=== PATIENT | female | born 2000 | race Caucasian/White ===

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

== ENCOUNTER 2022-07-24 12:04 | Emergency (ER) | payer BC ==
[~2022-07-24] VITALS: Ht 170.2 cm; Wt 90.0 kg
[2022-07-24 12:38] VITALS: BP 116/80
[2022-07-24] MEDS ORDERED: ondansetron 4mg rapidly disintigrating tab PO ONE (14:25)
[2022-07-24] MEDS ORDERED: fentaNYL 50MCG/ML 2ML intranasal KIT (WASTE REMAINDER W/WITNESS) NAS STA ×2 (14:25→14:48)
--- NOTE | 2022-07-24 14:50 | NUR ---
Spoke with Dr. Allen regarding Intranasal fentanyl, Dr. Allen stated to adjust dose to 100 mcg of IH fentanyl once now. Called pharmacy and requested that order be edited per Dr. Granados request.
[2022-07-24 15:23] LABS: BASOPHILS # (AUTO) 0.1 X10'3 (0-0.2); BASOPHILS % (AUTO) 0.4 % (0-1); EOSINOPHILS # (AUTO) 0.2 X10'3 (0-0.9); EOSINOPHILS % (AUTO) 1.9 % (0-6); HEMATOCRIT 44.6 % (35.0-45.0); HEMOGLOBIN 14.8 g/dl (12.0-16.0); LYMPHOCYTES # (AUTO) 4.1 X10'3 (1.1-4.8); LYMPHOCYTES % (AUTO) 31.5 % (21-51); MEAN CORPUSCULAR HEMOGLOBIN 28.4 PG (27.0-31.0); MEAN CORPUSCULAR HGB CONC 33.2 g/dL (33.0-36.5); MEAN CORPUSCULAR VOLUME 85.7 FL (78-98); MEAN PLATELET VOLUME 9.1 FL (7.4-10.4); MONOCYTES # (AUTO) 0.8 X10'3 (0-0.9); MONOCYTES % (AUTO) 5.8 % (2-12); NEUTROPHILS # (AUTO) 7.9 X10'3 (1.8-7.7); NEUTROPHILS % (AUTO) 60.4 % (42-75); PLATELET COUNT 261 X10'3 (140-440); RED BLOOD COUNT 5.21 X10'6 (4.20-5.60); RED CELL DISTRIBUTION WIDTH 13.2 % (11.5-14.5)
[2022-07-24 15:45] LABS: ALANINE AMINOTRANSFERASE 27 U/L (12-78); ALKALINE PHOSPHATASE 96 IU/L (20-180); ANION GAP 7 (8-16); ASPARTATE AMINO TRANSFERASE 19 U/L (10-37); BILIRUBIN,TOTAL 0.3 MG/DL (0.1-1.0); BLOOD UREA NITROGEN 13 MG/DL (7-18); BUN/CREATININE RATIO 17.3 (6.6-38.0); CALCIUM 9.8 MG/DL (8.5-10.1); CHLORIDE 104 MMOL/L (99-107); CREATININE 0.75 MG/DL (0.40-0.90); GLUCOSE 86 MG/DL (70-104); POTASSIUM 3.7 MMOL/L (3.5-5.1); SODIUM 140 MMOL/L (135-145); TOTAL CARBON DIOXIDE 28.7 MMOL/L (24-32); eGFR > 90 ML/MIN
[2022-07-24 15:50] LABS: MAGNESIUM 2.1 MG/DL (1.5-2.4)
[2022-07-24 15:57] LABS: MONOTEST NEGATIVE (Neg)
[2022-07-24 16:12] LABS: CLARITY,URINE SLIGHTLY CLOUDY (Clear); GLUCOSE, URINE NEGATIVE (Neg); KETONES,URINE NEGATIVE (Neg); LEUKOCYTE ESTERASE ,URINE NEGATIVE (Neg); NITRITES, URINE NEGATIVE (Neg); OCCULT BLOOD,URINE NEGATIVE (Neg); PH,URINE 5.5 (4.8-8.0); PROTEIN,URINE NEGATIVE (Neg); UROBILINOGEN,URINE 0.2 E.U/dL (0.2-1.0)
[2022-07-24 16:13] LABS: URINE HCG NEGATIVE (NEG)
[2022-07-24 16:22] LABS: COLOR,URINE STRAW (Yellow); MUCUS STRANDS FEW /LPF (Neg); SQUAMOUS EPITHELIAL CELL,UR MODERATE /LPF (FEW); UA COLLECTION TYPE VOIDED
[2022-07-24 16:23] LABS: BACTERIA,URINE FEW /HPF (Neg); RBC,URINE 0-2 /HPF (0-2); WBC,URINE 0-4 /HPF (0-4)
== END 2022-07-24 17:04 | disposition home or self-care (01) ==
LOC: ER 12:05
DX: R53.81 Other malaise (principal); R09.89 Other specified symptoms and signs involving the circulatory and respiratory systems
CPT/HCPCS: 36415; 71045; 80053; 81001; 81025; 82533; 83735; 84145; 84439; 84443; 85025; 85651; 86308; 99284; J3010

== ENCOUNTER 2022-11-21 08:35 | Emergency (ER) | payer BC ==
[~2022-11-21] VITALS: Ht 170.2 cm; Wt 90.9 kg
[2022-11-21 08:37] VITALS: BP 131/88
[2022-11-21] MEDS ORDERED: BENZ-38 PO (10:15)
== END 2022-11-21 10:25 | disposition home or self-care (01) ==
LOC: ER 08:35
DX: J06.9 Acute upper respiratory infection, unspecified (principal); Z79.899 Other long term (current) drug therapy
CPT/HCPCS: 87081; 87880; 99283

== ENCOUNTER 2023-08-23 12:18 | Emergency (ER) | payer BC ==
[~2023-08-23] VITALS: Ht 170.2 cm; Wt 104.2 kg
[2023-08-23 12:21] VITALS: BP 150/95; PULSE 99; RESP 16; TEMP 97.9; O2SAT 98
[2023-08-23] MEDS ORDERED: AMOX-580 PO (12:45)
== END 2023-08-23 13:03 | disposition home or self-care (01) ==
LOC: ER 12:19
DX: J01.90 Acute sinusitis, unspecified (principal); K05.30 Chronic periodontitis, unspecified; Z79.899 Other long term (current) drug therapy
CPT/HCPCS: 99283

== ENCOUNTER 2024-02-10 08:13 | Outpatient (CLI) | payer BC | END 2024-02-10 23:59 | disposition home or self-care (01) | LOC: RAD 08:13 | PROVIDERS: ATTEND Family Medicine | DX: R04.0 Epistaxis (principal); J32.0 Chronic maxillary sinusitis; J32.2 Chronic ethmoidal sinusitis; J34.89 Other specified disorders of nose and nasal sinuses | CPT/HCPCS: 70551 ==

== ENCOUNTER 2024-07-26 10:06 | Emergency (ER) | payer BC ==
[~2024-07-26] VITALS: Ht 170.2 cm; Wt 102.0 kg
[2024-07-26 10:41] LABS: STREP A SCREEN NEGATIVE (Neg)
[2024-07-26 11:28] VITALS: BP 129/84; PULSE 101; RESP 15; TEMP 99.9; O2SAT 97
== END 2024-07-26 11:29 | disposition home or self-care (01) ==
LOC: ER 10:07
DX: J02.9 Acute pharyngitis, unspecified (principal); H92.02 Otalgia, left ear
CPT/HCPCS: 87081; 87880; 99283

== ENCOUNTER 2024-10-12 14:10 | Emergency (ER) | payer BC ==
[~2024-10-12] VITALS: Ht 170.2 cm; Wt 104.0 kg
[2024-10-12] MEDS: ondansetron 4mg rapidly disintigrating tab PO ONE (15:54)
[2024-10-12] MEDS: ketorolac trometh 15mg/ml vial 15 MG/ML ML IM ONE (15:54)
[2024-10-12 16:08] VITALS: BP 140/83; PULSE 65; RESP 16; TEMP 98; O2SAT 98
== END 2024-10-12 16:09 | disposition home or self-care (01) ==
LOC: ER 14:11
DX: R51.9 Headache, unspecified (principal)
CPT/HCPCS: 99283

== ENCOUNTER 2024-10-13 12:29 | Outpatient (CLI) | payer BC ==
[2024-10-13 13:31] LABS: BASOPHILS % (AUTO) 0.3 % (0-1); EOSINOPHILS # (AUTO) 0.2 X10'3 (0-0.9); EOSINOPHILS % (AUTO) 2.1 % (0-6); HEMATOCRIT 45.9 % (35.0-45.0); HEMOGLOBIN 15.1 g/dl (12.0-16.0); LYMPHOCYTES # (AUTO) 3.6 X10'3 (1.1-4.8); LYMPHOCYTES % (AUTO) 44.8 % (21-51); MEAN CORPUSCULAR HEMOGLOBIN 27.1 PG (27.0-31.0); MEAN CORPUSCULAR HGB CONC 32.9 g/dL (33.0-36.5); MEAN CORPUSCULAR VOLUME 82.4 FL (78-98); MEAN PLATELET VOLUME 9.5 FL (7.4-10.4); MONOCYTES # (AUTO) 0.4 X10'3 (0-0.9); MONOCYTES % (AUTO) 5.4 % (2-12); NEUTROPHILS # (AUTO) 3.8 X10'3 (1.8-7.7); NEUTROPHILS % (AUTO) 47.4 % (42-75); PLATELET COUNT 263 X10'3 (140-440); RED BLOOD COUNT 5.57 X10'6 (4.20-5.60); RED CELL DISTRIBUTION WIDTH 13.6 % (11.5-14.5)
[2024-10-13 13:52] LABS: ALANINE AMINOTRANSFERASE 25 U/L (12-78); ALBUMIN 4.2 G/DL (3.4-5.0); ALBUMIN/GLOBULIN RATIO 1.1 (1.1-1.5); ALKALINE PHOSPHATASE 103 IU/L (46-116); ANION GAP 9 (8-16); ASPARTATE AMINO TRANSFERASE 13 U/L (10-37); BILIRUBIN,TOTAL 0.4 MG/DL (0.1-1.0); BLOOD UREA NITROGEN 11 MG/DL (7-18); BUN/CREATININE RATIO 13.4 (10.0-20.0); CALCIUM 9.5 MG/DL (8.5-10.1); CHLORIDE 101 MMOL/L (99-107); CREATININE 0.82 MG/DL (0.40-0.90); GLUCOSE 87 MG/DL (70-104); POTASSIUM 3.8 MMOL/L (3.5-5.1); SODIUM 138 MMOL/L (135-145); THYROID STIMULATING HORMONE 2.13 ulU/ml (0.34-4.50); TOTAL CARBON DIOXIDE 28.1 MMOL/L (24-32); TOTAL PROTEIN 8.1 G/DL (6.4-8.2); eGFR 87 ML/MIN
[2024-10-13 13:57] LABS: HEMOGLOBIN A1C 5.1 % (4.5-6.2)
[2024-10-15 15:20] LABS: THYROXINE (T4) 7.3 ug/dL (4.5-12.0)
== END 2024-10-13 23:59 | disposition home or self-care (01) ==
LOC: RAD 12:29
PROVIDERS: ATTEND Nurse Practitioner
DX: R53.83 Other fatigue (principal); R79.89 Other specified abnormal findings of blood chemistry; E07.9 Disorder of thyroid, unspecified; K13.70 Unspecified lesions of oral mucosa; M19.90 Unspecified osteoarthritis, unspecified site
CPT/HCPCS: 36415; 80053; 82306; 83036; 84436; 84443; 85025; 85651; 87529

== ENCOUNTER 2025-01-25 11:59 | Outpatient (CLI) | payer BC ==
[2025-01-25 12:29] LABS: BASOPHILS # (AUTO) 0.1 X10'3 (0-0.2); BASOPHILS % (AUTO) 0.6 % (0-1); EOSINOPHILS # (AUTO) 0.3 X10'3 (0-0.9); EOSINOPHILS % (AUTO) 3.5 % (0-6); HEMATOCRIT 44.3 % (35.0-45.0); HEMOGLOBIN 14.8 g/dl (12.0-16.0); LYMPHOCYTES # (AUTO) 3.3 X10'3 (1.1-4.8); LYMPHOCYTES % (AUTO) 35.4 % (21-51); MEAN CORPUSCULAR HEMOGLOBIN 27.5 PG (27.0-31.0); MEAN CORPUSCULAR HGB CONC 33.4 g/dL (33.0-36.5); MEAN CORPUSCULAR VOLUME 82.4 FL (78-98); MEAN PLATELET VOLUME 9.4 FL (7.4-10.4); MONOCYTES # (AUTO) 0.6 X10'3 (0-0.9); MONOCYTES % (AUTO) 6.1 % (2-12); NEUTROPHILS % (AUTO) 54.4 % (42-75); PLATELET COUNT 224 X10'3 (140-440); RED BLOOD COUNT 5.37 X10'6 (4.20-5.60); RED CELL DISTRIBUTION WIDTH 13.7 % (11.5-14.5); WHITE BLOOD COUNT 9.3 X10'3 (4.5-11.0)
[2025-01-25 12:57] LABS: FREE T4 (FREE THYROXINE) 0.86 NG/DL (0.73-1.40); THYROID STIMULATING HORMONE 1.89 ulU/ml (0.34-4.50)
[2025-01-25 13:21] LABS: % IRON SATURATION 19 % (11-46); IRON 60 UG/DL (49-151); TOTAL IRON BINDING CAPACITY 316 UG/DL (259-388)
== END 2025-01-25 23:59 | disposition home or self-care (01) ==
LOC: RAD 11:59
PROVIDERS: ATTEND Nurse Practitioner
DX: E55.9 Vitamin D deficiency, unspecified (principal); E03.9 Hypothyroidism, unspecified; R53.83 Other fatigue
CPT/HCPCS: 36415; 82728; 83540; 83550; 84439; 84443; 85025; 86885; 86900; 86901

== ENCOUNTER 2025-04-04 21:33 | Emergency (ER) | payer BC ==
[~2025-04-04] VITALS: Ht 170.2 cm; Wt 110.0 kg
[2025-04-04 21:42] VITALS: BP 122/76; PULSE 76; RESP 20; TEMP 98.1; O2SAT 98
[2025-04-04] MEDS ORDERED: FLUT16SP2 BOTHNARES (21:54)
[2025-04-04] MEDS ORDERED: CETI10TA15 PO (21:54)
--- NOTE | 2025-04-04 21:55 | Physician Documentation ---
History of Present Illness ~ Chief Complaint: Ear Pain Stated Complaint: EAR PAIN Primary Medical Doctor: [facility] Source: patient Mode of Arrival: POV Exam Limitations: no limitations HPI 24-year-old female with a crackling sound when talking that she experiences in her left ear for 2 days. Patient is newly fostering a kitten and concerned because she had fleas if there was something in her ear. Patient denies any ear pain, fever, decreased hearing, or ear discharge. Medication Reconciliation Allergies: Coded Allergies: No Known Allergies (Unverified , 07/26/24) Past Medical History Past Medical History: No Pertinent History, Thyroid (unspecified) Past Surgical History: noncontributory Alcohol Use: None Drug Use: none Lives with: Family Lives In: Home Occupation: employed, student Review of Systems All Other Systems at this time: Reviewed and Negative ENT: Reports: see HPI Physical Exam Vital Signs: RN Vital Signs have been reviewed: Yes, Temperature: 98.1, Heart Rate: 76, Respiratory Rate: 20, BP: 122/76, Pulse Oximetry: 98, Weight: 110.000 Physical Exam General: Alert, no apparent distress. HEENT: PERRL, EOMI, no injection, moist mucous membranes. Cerumen obstructing visualization of tympanic membrane to right ear. Left ear canal unremarkable for swelling or erythema no erythema to tympanic membrane although bulging with effusion Neck: Full range of motion. Respiratory: Lungs clear, no respiratory distress. Chest: No accessory muscle use. Cardiovascular: Regular rate and rhythm, no murmurs. Extremities: Normal range of motion, no deformity. Neurologic: Oriented x4. Psychiatric: Normal mood and affect. Skin: Normal color, warm and dry. No edema, no ecchymosis. Progress Results/Orders Results/Orders Vital Signs 04/04/25 21:42 Temp 98.1 Pulse 76 Resp 20 B/P (MAP) 122/76 Pulse Ox 98 Medical Decision Making Findings Crackling bubbling sensation to left ear x2 days without signs of infection tympanic membrane with effusion and air bubbles although no signs of infection. Infective versus allergic processes nasal spray and allergy medication prescribed to follow up with primary care Departure Time of Disposition: 21:52 Disposition: 01 HOME / SELF CARE / HOMELESS Impression: Primary Impression: Middle ear effusion Condition: Stable Discharge Instructions: Earache, Adult Additional Instructions: As discussed during our encounter there is fluid buildup behind the ear with some bubbles which is likely making the crackling or popping sound that you are experiencing. As discussed it could be part of an allergic process or allergies exacerbated by the smoke outside. Use nasal spray as prescribed as well as nondrowsy allergy medication to help facilitate resolution of effusion. Follow up with primary care Referrals: NO PRIMARY CARE PROVIDER (PCP) Prescriptions Cetirizine HCl (Cetirizine HCl) 10 Mg Tablet 1 TAB PO DAILY for allergy symptoms for 30 Days, #30 TAB 0 Refills Prov: CHANEL GONZALEZ NP 04/04/25 Fluticasone Propionate (Flonase) 16 Gm Trosper.susp 2 SPRAYS BOTHNARES DAILY for 30 Days, #16 GM Prov: CHANEL GONZALEZ NP 04/04/25 Education Educated: Patient Educated regarding: diagnosis, treatment, need for follow up Signature Scribe Signature: No scribe Attestation: The note accurately reflects work and decisions made by me.Chanel WATTS 04/04/25 21:54 CHANEL GONZALEZ NP Apr 04, 2025 21:55
== END 2025-04-04 22:16 | disposition home or self-care (01) ==
LOC: ER 21:34
DX: H92.02 Otalgia, left ear (principal)
CPT/HCPCS: 99282

== ENCOUNTER 2025-05-25 12:16 | Outpatient (CLI) | payer BC ==
[~2025-05-25 12:16] MED LIST: CETI10TA15 PO; FLUT16SP2 BOTHNARES
--- NOTE | 2025-05-25 13:42 | RADIOLOGY REPORT ---
EXAM: DI SACRUM COCCYX CLINICAL INDICATION: SACRAL PAIN TECHNIQUE: DI SACRUM COCCYX Comparison: None FINDINGS/IMPRESSION: There is no evidence of acute fracture or dislocation. The visualized joint space is well maintained. The alignment is anatomical. There is no radiopaque foreign body. No evidence for sacral fusion or sacroiliitis
--- NOTE | 2025-05-25 13:42 | RADIOLOGY REPORT ---
INDICATION: SACRAL PAIN COMPARISON: None TECHNIQUE: 5 views of the lumbar spine were obtained. FINDINGS: The lumbar vertebral alignment is normal. The intervertebral disc spaces are well-maintained. No significant facet arthropathy is noted. No acute fracture, vertebral compression deformity or aggressive osseous lesions. The paravertebral soft tissues are grossly unremarkable. IMPRESSION: No acute fracture or subluxation.
== END 2025-05-25 23:59 | disposition home or self-care (01) ==
LOC: RAD 12:16
PROVIDERS: ATTEND Nurse Practitioner
DX: M53.3 Sacrococcygeal disorders, not elsewhere classified (principal)
CPT/HCPCS: 72110; 72220

== ENCOUNTER 2025-06-01 13:43 | Outpatient (CLI) | payer BC ==
[2025-06-03 15:14] LABS: C-PEPTIDE, SERUM 2.1 ng/mL (1.1-4.4); INSULIN 9.4 uIU/mL (2.6-24.9)
== END 2025-06-01 23:59 | disposition home or self-care (01) ==
LOC: RAD 13:43
PROVIDERS: ATTEND Nurse Practitioner
DX: R73.9 Hyperglycemia, unspecified (principal)
CPT/HCPCS: 36415; 83036; 83525; 84681

== ENCOUNTER 2025-06-25 14:11 | Outpatient (CLI) | payer BC ==
--- NOTE | 2025-06-25 15:51 | RADIOLOGY REPORT ---
PROCEDURE: MR MRI LUMBAR SPINE Indication: LOW BACK PAIN, UNSPECIFIED COMPARISON: None TECHNIQUE: Multiplanar multisequence images of the the lumbar spine are obtained. Patient declined contrast for the examination. FINDINGS: For the purpose of this examination, there are 5 lumbar vertebral body types counting from the lumbosacral junction. Lumbar vertebral body heights maintained. Mild multilevel disc space narrowing. Alignment preserved. No abnormal marrow edema. Conus terminates at the L1 level. L1-2: Tiny disc protrusion. Mild facet and flavum hypertrophy. No spinal canal stenosis. No neural foraminal stenosis. L2-3: Tiny disc protrusion. Mild facet and flavum hypertrophy. No spinal canal stenosis. No neural foraminal stenosis. L3-4: Tiny disc protrusion. Vjxb-rd-jlyitcjl facet and flavum hypertrophy. No spinal canal stenosis. No neural foraminal stenosis. L4-5: 2 mm disc protrusion. Mild facet and flavum hypertrophy. No spinal canal stenosis. Mild bilateral neural foraminal stenosis. L5-S1: Small disc protrusion. Mild facet and flavum hypertrophy. No spinal canal stenosis. Goya-eu-jwfaukbj bilateral neural foraminal stenosis Small amount of free pelvic fluid.m right ovarian cystic lesion measuring 1.9 cm, incompletely characterized. No significant sacroiliac degenerative disease. No abnormal marrow edema in the region of the SI joints. IMPRESSION: Mild lumbar degenerative disc disease. Nmxt-en-bfuktxug neural foraminal stenosis L5-SMild neural foraminal stenosis L4-5. Small amount of free pelvic fluid. 1.9 cm right ovarian cystic lesion incompletely characterized. This can be better characterized with ultrasound of the pelvis.
== END 2025-06-25 23:59 | disposition home or self-care (01) ==
LOC: MRI02 14:11
PROVIDERS: ATTEND Nurse Practitioner
DX: M51.27 Other intervertebral disc displacement, lumbosacral region (principal); N83.291 Other ovarian cyst, right side; M47.817 Spondylosis without myelopathy or radiculopathy, lumbosacral region; M48.07 Spinal stenosis, lumbosacral region
CPT/HCPCS: 72148

== ENCOUNTER 2025-07-09 19:13 | Emergency (ER) | payer BC ==
[~2025-07-09] VITALS: Ht 170.2 cm; Wt 110.0 kg
--- NOTE | 2025-07-09 19:51 | ELECTROCARDIOGRAPH REPORT ---
[facility] Test Date: 2025-07-09 Test Time: 19:20:48 Pat Name: STEPHON JIMENEZ Department: EMERGENCY ROOM Patient ID: [facility]-[id number] Room: Gender: F Tanker Service Attendant: FLORENTIN : 2000 Requested By: ANIKA AMOR Order Number: [id number] Reading MD: Dr. Tomi Joseph Measurements Intervals Dickinson Rate: 101 P: 54 TX: 162 QRS: -7 QRSD: 96 T: 16 QT: 332 QTc: 431 Interpretive Statements Sinus tachycardia Low voltage, precordial leads RSR' in V1 or V2, right VCD or RVH Borderline T abnormalities, anterior leads Electronically Signed On 07-16-2025 7:51:[address] Tomi Joseph Please click the below link to view image of tracing.
[2025-07-09 20:20] LABS: URINE HCG NEGATIVE (NEG)
[2025-07-09 20:21] LABS: LEUKOCYTE ESTERASE ,URINE SMALL (Neg); NITRITES, URINE NEGATIVE (Neg); OCCULT BLOOD,URINE TRACE-INTACT (Neg)
[2025-07-09 20:26] LABS: UA COLLECTION TYPE NON-SPECIFIED
[2025-07-09 20:29] LABS: SQUAMOUS EPITHELIAL CELL,UR FEW /LPF (FEW)
[2025-07-09 20:48] LABS: MEAN PLATELET VOLUME 9.2 FL (7.4-10.4); RED CELL DISTRIBUTION WIDTH 13.5 % (11.5-14.5)
--- NOTE | 2025-07-09 20:49 | RADIOLOGY REPORT ---
CHEST RADIOGRAPH Indication: CP Technique: Single frontal view of the chest was obtained COMPARISON: CHEST,SINGLE VIEW on DOS: 07/24/22 FINDINGS: Lines and Tubes: None Lungs: Clear Pleura: No effusion. No pneumothorax. Cardiomediastinal contours: Unremarkable Bones: Unremarkable IMPRESSION: No acute disease.
[2025-07-09 21:03] LABS: CREATININE 0.80 MG/DL (0.40-0.90); PRO BRAIN NATRIURETIC PEPTIDE 33 PG/ML (0-125); TOTAL CARBON DIOXIDE 27.6 MMOL/L (24-32); eCRCL 107 ML/MIN; eGFR 90 ML/MIN
[2025-07-09 22:00] VITALS: TEMP 97.2
--- NOTE | 2025-07-09 22:00 | Physician Documentation ---
History of Present Illness General Chief Complaint: Palpitations Stated Complaint: CHEST PAIN/ SOB Time Seen by MD: 21:57 Primary Medical Doctor: [facility] History of Present Illness Initial Comments Patient is a 24-year-old female states she has had episodes in the past where she has felt palpitations. The patient states she had an episode today proximally 18 30 where she felt palpitations and some slight chest discomfort on the left side the patient states that the episode continued and she had palpitations for about 2 hours. She states her symptoms of the have now resolved. Patient denies any significant urinary symptoms. She denies any fevers chills nausea or vomiting she denies any history of heart issues. Medication Reconciliation Allergies: Coded Allergies: No Known Allergies (Unverified , 07/09/25) Scheduled Cefpodoxime Proxetil (Vantin), 1 TAB PO Q12H Cetirizine HCl (Cetirizine HCl), 1 TAB PO DAILY Fluticasone Propionate (Flonase), 2 SPRAYS BOTHNARES DAILY Past Medical History Past Medical History: No Pertinent History, Thyroid (unspecified) Past Surgical History: noncontributory Smoking: Non-Smoker Alcohol Use: None Drug Use: none Lives with: Family Lives In: Home Occupation: employed, student Review of Systems All Other Systems at this time: Reviewed and Negative Physical Exam Physical Exam Vital Signs: Temperature: 98.4, Source: Temporal, Heart Rate: 90, Respiratory Rate: 18, BP: 145/99, Pulse Oximetry: 99, Weight: 110.000 Physical Exam VITALS: Reviewed and as above. GENERAL: Alert, no apparent distress. HEENT: Normocephalic, atraumatic, PERRL, EOMI, dry mucosa, no erythema RESPIRATORY: Lungs clear, normal breath sounds, no respiratory distress. CHEST: No accessory muscle use, no retractions CV: Regular rate, rhythm, no edema, no murmur, No: JVD GI: Soft, non-tender, bowels sounds present, no rebound, guarding, or rigidity BACK: No CVA tenderness, or swelling MUSCULOSKELETAL: No deformities, no edema SKIN: Warm and dry, no rash NEURO: Oriented x4, No motor or sensory deficit PSYCH: Normal mood and affect, no agitation Progress Results/Orders Results/Orders Completed Orders - OHLEDIE BAUTISTA MD Cephalexin Capsule (Keflex Capsule) (10/17/25 22:25) Potassium Cl 10meq Er Tablet (Klor-Con 1 (07/09/25 22:30) Vital Signs 07/09/25 07/09/25 07/09/25 07/09/25 19:42 20:26 20:26 22:00 Temp 98.4 97.2 Pulse 84 90 90 Resp 18 18 18 18 B/P (MAP) 145/97 145/99 (114) 120/77 (91) Pulse Ox 99 99 99 07/09/25 22:41 Pulse 92 Resp 16 B/P (MAP) 122/88 Pulse Ox 96 Laboratory Tests Test 07/09/25 19:50 07/09/25 20:31 07/09/25 21:52 Urine Specimen Description Non-specified Urine Color Yellow Urine Clarity Clear Urine pH 6.0 Urine Specific [place] 1.025 Urine Protein Negative Urine Glucose (UA) Negative Urine Ketones Negative Urine Occult Blood Trace-intact Urine Nitrite Negative Urine Bilirubin Negative Urine Urobilinogen 0.2 Urine Leukocyte Esterase Small H Urine RBC 0-2 Urine WBC 10-20 H Urine Squamous Epithelial Cells Few Urine Bacteria 1+ Urine Culture Indicated Indicated Volume Urine Centrifuged 10 ml Urine HCG, Qualitative Negative Urine Comment White Blood Count 11.3 H Red Blood Count 5.13 Hemoglobin 14.1 Hematocrit 42.3 Mean Corpuscular Volume 82.5 Mean Corpuscular Hemoglobin 27.5 Mean Corpuscular Hemoglobin Concent 33.4 Red Cell Distribution Width 13.5 Platelet Count 249 Mean Platelet Volume 9.2 Neutrophils (%) (Auto) 64.5 Lymphocytes (%) (Auto) 29.2 Monocytes (%) (Auto) 5.3 Eosinophils (%) (Auto) 0.8 Basophils (%) (Auto) 0.2 Neutrophils # (Auto) 7.3 Lymphocytes # (Auto) 3.3 Monocytes # (Auto) 0.6 Eosinophils # (Auto) 0.1 Basophils # (Auto) 0.0 CBC Comment Sodium Level 139 Potassium Level 3.2 L Chloride Level 104 Carbon Dioxide Level 27.6 Anion Gap 7 L Blood Urea Nitrogen 9 Creatinine 0.80 Estimated GFR/1.73 m2 90 BUN/Creatinine Ratio 11.3 Glucose Level 124 H Calcium Level 8.9 Troponin I High Sensitivity < 4 L < 4 L Troponin I High Sens Percent Delta Troponin I Hi Sens Absolute Change Pro-B-Type Natriuretic Peptide 33 Albumin 4.0 Chemistry Comments Microbiology Date/Time Source Procedure Growth Status 07/09/25 20:30 Urine Nonspecified Urine Culture - Final MIXED ERNIE ISOLATED.... Complete EKG/XRAY/CT/US/VASC/MRI Chest X-Ray : Additional Comments Patient: STEPHON JIMENEZ V Medical Record: [id number] : 2000, Age: 24 Sex: Female Location: ER Patient Status: REG ER Service Date/Time: 07/09/251947 Ordering Physician: ANIKA AMOR PLASTIC INSTALLER Exam: CHEST,SINGLE VIEW CHEST RADIOGRAPH Indication: CP Technique: Single frontal view of the chest was obtained COMPARISON: CHEST,SINGLE VIEW on DOS: 07/24/22 FINDINGS: Lines and Tubes: None Lungs: Clear Pleura: No effusion. No pneumothorax. Cardiomediastinal contours: Unremarkable Bones: Unremarkable IMPRESSION: No acute disease. Electronically Signed by:PAPO ABDULLAHI MD Date & Time: 07/09/252045 Dictated by: PAPO ABDULLAHI MD Dictation date and time: 07/09/252045 Primary Care Provider: NO PRIMARY CARE PROVIDER Medical Decision Making Additional information obtaine: old records Findings The patient is a 24-year-old female with a complaint of palpitations, the patient describes symptoms consistent with a having several PVCs, the patient's cardiac workup here is unremarkable she has got an nonischemic appearing EKG and normal labs. The patient's EKG was interpreted by me as a sinus tachycardia the patient has a normal axis and some nonspecific ST abnormalities it was interpreted by me as a borderline EKG the time of the interpretation was 1919. The patient's chest x-ray independently interpreted by me as showing a normal cardiac silhouette normal bony structures and normal-appearing lung cannon I interpreted as a normal x-ray I have also reviewed the radiologist's interpretation as well the patient's pulse oximetry was interpreted as normal and adequate in the monitor job development specialist was interpreted as a sinus rhythm the patient will be discharged with instructions to return for worsening of their symptoms Differential Diagnosis Pleurisy pericarditis, chest wall pain, cardiac disease, coronary artery disease. Aortic dissection. Departure Disposition: HOME / SELF CARE / HOMELESS Impression: Primary Impression: Palpitations Additional Impression: Urinary tract infection Qualified Codes: N39.0 - Urinary tract infection, site not specified Discharge Instructions: Palpitations, [id number] Referrals: NO PRIMARY CARE PROVIDER (PCP) Prescriptions Cefpodoxime Proxetil (Vantin) 200 Mg Tablet 1 TAB PO Q12H for 5 Days, #10 TAB Prov: EDIE PUENTE MD 07/09/25 Signature Scribe Signature: No scribe Attestation: The note accurately reflects work and decisions made by me.Edie Puente MD 07/12/25 06:39 EDIE PUENTE MD Jul 09, 2025 22:00
[2025-07-09] MEDS ORDERED: CEFP200T13 PO (22:24)
[2025-07-09 22:41] VITALS: BP 122/88; PULSE 92; RESP 16; O2SAT 96
== END 2025-07-09 22:42 | disposition home or self-care (01) ==
LOC: ER 19:14
DX: R00.2 Palpitations (principal); N39.0 Urinary tract infection, site not specified; Z79.899 Other long term (current) drug therapy
CPT/HCPCS: 36415; 71045; 80048; 81001; 81025; 83880; 84484; 85025; 87088; 93005; 99285

== ENCOUNTER 2025-08-20 13:11 | Emergency (ER) | payer BC ==
[~2025-08-20] VITALS: Ht 170.2 cm; Wt 108.4 kg
[2025-08-20 13:17] VITALS: BP 134/93; RESP 16; TEMP 98.7; O2SAT 100
[2025-08-20 14:00] LABS: LEUKOCYTE ESTERASE ,URINE NEGATIVE (Neg); NITRITES, URINE NEGATIVE (Neg); OCCULT BLOOD,URINE NEGATIVE (Neg)
[2025-08-20 14:01] LABS: URINE HCG NEGATIVE (NEG)
[2025-08-20 14:04] LABS: UA COLLECTION TYPE CLN CATCH MIDSTREAM
[2025-08-20 14:09] LABS: SQUAMOUS EPITHELIAL CELL,UR MODERATE /LPF (FEW)
--- NOTE | 2025-08-20 14:43 | Physician Documentation ---
History of Present Illness ~ Chief Complaint: Urinary Symptoms Stated Complaint: UTI Time Seen by MD: 14:06 Primary Medical Doctor: [facility] HPI Patient is a very pleasant 25-year-old female that presents to the emergency department for evaluation of couple of days of mild dysuria cloudiness to her urine a malodor per the patient. Patient reports he does not normally have symptoms when she has a UTI but has UTI symptoms today. So she wanted to get checked out. Patient denies fever chills nausea vomiting diarrhea. Reports that she may have started to get chills today but she is unsure. Maybe feeling a little bit under the weather. No other symptoms reported at this time. No blood in her urine reported no blood in her stool reported area of pain or discomfort noted to her abdomen at this time. Medication Reconciliation Allergies: Coded Allergies: No Known Allergies (Unverified , 08/20/25) Scheduled Cetirizine HCl (Cetirizine HCl), 1 TAB PO DAILY Fluticasone Propionate (Flonase), 2 SPRAYS BOTHNARES DAILY Past Medical History Past Medical History: No Pertinent History, Thyroid (unspecified) Past Surgical History: noncontributory Alcohol Use: None Drug Use: none Lives with: Family Lives In: Home Occupation: employed, student Review of Systems ROS As stated above in the HPI, otherwise all systems are reviewed and negative. Physical Exam Vital Signs: Temperature: 98.7, Source: Temporal, Heart Rate: 76, Respiratory Rate: 16, BP: 134/93, Pulse Oximetry: 100, Weight: 108.400 Oxygen Flow Rate: 0 Physical Exam VITALS: Reviewed and as above. GI: Soft, non-tender, bowels sounds present, no rebound, guarding, or rigidit, mild tenderness noted to suprapubic region with palpation during examination. BACK: No CVA tenderness, or swelling. NEURO: Oriented x4, No motor or sensory deficit PSYCH: Normal mood and affect, no agitation Progress Results/Orders Results/Orders Vital Signs 08/20/25 13:17 Temp 98.7 Pulse 76 Resp 16 B/P (MAP) 134/93 Pulse Ox 100 O2 Flow Rate 0 Laboratory Tests Test 08/20/25 13:20 Urine Specimen Description Cln catch midstream Urine Color Straw Urine Clarity Cloudy Urine pH 6.0 Urine Specific [place] 1.010 Urine Protein Negative Urine Glucose (UA) Negative Urine Ketones Negative Urine Occult Blood Negative Urine Nitrite Negative Urine Bilirubin Negative Urine Urobilinogen 0.2 Urine Leukocyte Esterase Negative Urine RBC 0-2 Urine WBC 0-4 Urine Squamous Epithelial Cells Moderate Urine Bacteria 1+ Urine Culture Indicated Not ind Volume Urine Centrifuged 10 ml Urine HCG, Qualitative Negative Urine Comment Medical Decision Making Additional information obtaine: other Findings 25-year-old female presented with 2 days of mild dysuria, cloudy urine, and malodor, with new-onset symptoms consistent with acute uncomplicated cystitis. She reports prior history of asymptomatic UTIs but is currently symptomatic. She denies fever, chills (though possibly starting today), nausea, vomiting, diarrhea, hematuria, and blood in stool. She notes abdominal discomfort but no other concerning features. No vaginal discharge or irritation reported. On evaluation, the patient is non, immunocompetent, and without urologic abnormalities, meeting criteria for uncomplicated UTI. Physical exam and history do not suggest pyelonephritis (no fever, flank pain, or costovertebral tenderness). Differential diagnosis includes cystitis, but no evidence for urethritis, vaginitis, or complicated infection. Urinalysis was negative at this time, other than cloudy urine noted. Per current evidence, a negative urinalysis does not reliably exclude UTI in women with typical symptoms, and clinical diagnosis remains appropriate. The patient declined further laboratory diagnostics and abdominal workup. The patient was counseled on the low risk of complications and the option for empiric antibiotic therapy (nitrofurantoin, trimethoprim-sulfamethoxazole, or fosfomycin are first-line agents). She elected to defer antibiotics and pursue symptomatic management at this time. Discharge plan: Supportive care, increased oral fluids, and strict return precautions for worsening symptoms (fever, persistent chills, flank pain, vomiting, or lack of improvement). Advised to seek care if symptoms persist or worsen, at which point further evaluation and empiric antibiotics would be indicated. No imaging or urine culture indicated at this time per guidelines. Shared decision-making documented; patient understands risks and benefits of deferred diagnostics and treatment. No evidence of complicated UTI or pyelonephritis at present. Urinary Diff Dx:Considerations: Include: AAA, , Aortic dissection, Appendicitis, Bowel obstruction, Cholelithiasis, Choleangitis, DJD, Ectopic , Hepatitis, HNP, Impaction, Intrauterine , Musculoskeletal pain, Ovarian torsion, Pancreatitis, PID, Post-Op complication, Pyelonephritis, Renal failure, Strain, Urinary Obstruction, Urolithiasis, Urinary retention, UTI, Vaginitis, Other Genital Diff Dx:Considerations: Include: -Complete, - Incomplete, -Inevitable, Ablortion-Missed, -Threatened, Abruptio placentae, Bartholin abscess, Bartholin cyst, Blood loss anemia, Constipation, Cervicitis, Dsymenorrhea, Ectopic , Foreign body, Hormonal, Hidra denitis suppurativa, Intrauterine , Menorrhagia, Menometrorrhagia, Menstrual bleeding, Myomatous uterus, Perianal abscess, Physiologic discharge, Pinworms, PID, Placenta previa, , Precipitous Hct, Trauma, UTI, Vaginitis(osis)-Atrophic, Vaginitis, Vaginitis(osis)-Bacterial, Vaginitis(osis)- Candidal, Vaginitis(osis)-Contact, Vaginitis(osis)-Herpes, Vaginitis(osis)-David carranza, Other Departure Disposition: 01 HOME / SELF CARE / HOMELESS Impression: Primary Impression: Acute urinary tract infection Condition: Stable Discharge Instructions: Dysuria, Urinary Tract Infection, Adult Additional Instructions: You were evaluated today for symptoms of a urinary tract infection (UTI), including painful urination, cloudy urine, and odor. Based on your symptoms, you likely have an uncomplicated bladder infection (cystitis). Your Prescribed Medication You have been prescribed cephalexin (Keflex) 500 mg by mouth twice daily for 5-7 days. Take one capsule in the morning and one in the evening, approximately 12 hours apart Take with or without food Complete the entire course of antibiotics, even if you start feeling better after a few days Do not skip doses or stop early, as this can lead to the infection returning or antibiotic resistance If you miss a dose, take it as soon as you remember. If it's almost time for your next dose, skip the missed dose and continue your regular schedule What to Expect Your symptoms should start to improve within 24-48 hours of starting the antibiotic Most people feel significantly better within 2-3 days Complete resolution of all symptoms may take the full course of treatment Home Care Instructions To help your body fight the infection and feel better: Drink plenty of fluids - Aim for 6-8 glasses of water per day to help flush bacteria from your bladder Urinate frequently - Don't hold your urine; go to the bathroom when you feel the urge Use bzeg-iuo-prnfhwk pain relief - Ibuprofen (Advil, Motrin) or acetaminophen (Tylenol) can help with discomfort and pain Apply a heating pad - Place a warm heating pad on your lower abdomen for 15-20 minutes at a time to ease discomfort Avoid bladder irritants - Limit caffeine, alcohol, and spicy foods until symptoms improve Prevention Tips To reduce your risk of future UTIs: Urinate soon after sexual intercourse Wipe from front to back after using the bathroom Avoid using spermicides or diaphragms if you have frequent UTIs Stay well-hydrated throughout the day Consider cranberry products, which may help prevent recurrent infections WHEN TO RETURN TO THE EMERGENCY DEPARTMENT OR CALL YOUR DOCTOR Seek medical care immediately if you develop any of the following: Fever (temperature of 100.4F or 38C or higher). Chills or shaking Back pain or flank pain (pain in your sides or lower back) Nausea or vomiting Blood in your urine (pink, red, or cola-colored urine) Symptoms that worsen despite taking antibiotics Symptoms that do not improve within 48-72 hours of starting antibiotics New or worsening abdominal pain Confusion or feeling very ill Allergic reaction to the medication (rash, hives, difficulty breathing, swelling of face or throat) These symptoms may indicate that the infection has spread to your kidneys (pyelonephritis), that the bacteria are resistant to the antibiotic, or that you are having an allergic reaction. Follow-Up You do not need a routine follow-up appointment if your symptoms completely resolve If symptoms persist or worsen despite completing the full course of antibiotics, contact your primary care doctor or return to the emergency department for further evaluation If you have frequent UTIs (3 or more in one year), discuss prevention strategies with your doctor Questions? If you have any questions or concerns about your symptoms or medication, please contact your primary care provider or return to the emergency department. Referrals: NO PRIMARY CARE PROVIDER (PCP) Prescriptions Cephalexin*Monohydrate* (Keflex*) 500 Mg Capsule 1 CAP PO QID for 7 Days, #28 CAP Prov: MARIANNE VENEGAS 08/20/25 Education Educated: Patient Educated regarding: diagnosis, treatment, need for follow up Signature Scribe Signature: A Attestation: Scribed for Marianne Venegas by MAC Siegel . 08/20/25 14:48 MARIANNE VENEGAS Aug 20, 2025 14:43
[2025-08-20] MEDS ORDERED: CEPH-585 PO (14:48)
[2025-08-20 14:58] VITALS: PULSE 16
== END 2025-08-20 15:00 | disposition home or self-care (01) ==
LOC: ER 13:12
DX: N39.0 Urinary tract infection, site not specified (principal); Z79.899 Other long term (current) drug therapy
CPT/HCPCS: 81001; 81025; 99283